=== PATIENT | female | born 1950 | race Caucasian/White ===

== ENCOUNTER 2023-02-17 23:24 | Inpatient (IN) | payer OTHER ==
[~2023-02-17] VITALS: Ht 165.1 cm; Wt 72.6 kg
[2023-02-17 23:26] VITALS: BP 161/91
[2023-02-17 23:58] LABS: BASO # 0.1 10*3/uL (0.0-0.1); BASO % 0.7 % (0.0-1.0); EOS # 0.2 10*3/uL (0.0-0.4); EOS % 2.3 % (1.0-4.0); HEMATOCRIT 42.1 % (37.0-47.0); LYMPH # 2.4 10*3/uL (1.3-4.4); LYMPH % 28.9 % (27.0-41.0); MEAN CELL VOLUME 83.4 fl (81.0-99.0); MEAN CORPUSCULAR HGB 26.7 pg (27.0-31.0); MEAN CORPUSCULAR HGB CONC 32.1 g/dl (33.0-37.0); MEAN PLATELET VOLUME 9.1 fl (9.6-12.3); MONO # 0.6 10*3/uL (0.1-1.0); MONO % 7.5 % (3.0-9.0); NEUT % 60.4 % (47.0-73.0); PLATELET COUNT AUTOMATED 267 10*3/uL (130-400); RED BLOOD COUNT 5.05 10*6/uL (4.10-5.10); RED CELL DISTRI WIDTH 13.6 % (0-14.5); WHITE BLOOD COUNT 8.4 10*3/uL (4.8-10.8)
[2023-02-18 00:21] LABS: ALKALINE PHOSPHATASE 84 U/L (46-116); BUN 18 mg/dl (9-23); CHLORIDE 109 mmol/L (98-107); POTASSIUM 3.9 mmol/L (3.4-5.1); SGPT/ALT 15 U/L (10-49); TOTAL PROTEIN 6.9 gm/dL (6.0-8.0)
[2023-02-18 00:26] LABS: ETHYL ALCOHOL < 3.0 mg/dl (<3)
[2023-02-18 00:38] LABS: BILIRUBIN Negative (Negative); BLOOD Negative (Negative); CLARITY Clear (Clear); COLOR Yellow (Yellow); GLUCOSE Negative (Negative); KETONE Negative (Negative); LEUKO ESTERASE Negative (Negative); NITRITE Negative (Negative); UROBILINOGEN 0.2 E.U./dl (0.0-1.0)
[2023-02-18 01:14] LABS: CALCIUM OXALATE CRYSTALS Trace
[2023-02-18 01:15] LABS: RBC 0-2 rbc/hpf (0-2); WBC 0-2 wbc/hpf (0-5)
[2023-02-18 01:48] LABS: URINE AMPHETAMINES Negative (1000ng/ml); URINE BARBITURATES Negative (200ng/ml); URINE BENZODIAZEPINES Negative (200ng/ml); URINE CANNABINOIDS (THC) Negative (50ng/ml); URINE COCAINE Negative (300ng/ml); URINE METHADONE Negative (300ng/ml); URINE OPIATES Negative (300ng/ml); URINE PHENCYCLIDINE Negative (25ng/ml)
[2023-02-18 02:56] VITALS: BP 165/88
[2023-02-18] MEDS ORDERED: Synthroid,Levo50 MCG PO (06:43)
[2023-02-18] MEDS ORDERED: METFORMIN HYDR500 MG PO (06:46)
[2023-02-18] MEDS ORDERED: VALSARTAN160 MG PO (06:48)
[2023-02-18] MEDS ORDERED: AMLODIPINE BESYL5 MG PO (06:49)
[2023-02-18] MEDS ORDERED: ROSUVASTATIN CA10 MG PO (06:50)
[2023-02-18] MEDS ORDERED: CENTRUM SILVER1 EAC2 PO (06:52)
[2023-02-18] MEDS ORDERED: FISH OIL 1,2001 EAC6 PO (06:54)
[2023-02-18] MEDS ORDERED: ZINC50 M4 PO (06:55)
[2023-02-18] MEDS ORDERED: CO Q10100 MG PO (07:01)
[2023-02-18] MEDS ORDERED: TRULICITY0.75 MG/0. SC (07:02)
[2023-02-18] MEDS ORDERED: INFANT'S M50 MG/1.25 PO (07:07)
[2023-02-18] MEDS ORDERED: DONEPEZIL HCL10 MG PO (07:08)
[2023-02-18] MEDS ORDERED: NAMENDA-14 PO (07:09)
[2023-02-18] MEDS ORDERED: LEXAPRO20 MG PO (07:11)
[2023-02-18] MEDS ORDERED: MELATONIN10 M4 PO (07:13)
[2023-02-18 07:45] VITALS: BP 146/75
[2023-02-18 19:34] VITALS: BP 156/83
[2023-02-19 08:05] VITALS: BP 206/88
[2023-02-19 08:25] VITALS: BP 162/92
[2023-02-19 09:09] VITALS: BP 162/88
[2023-02-19 20:00] VITALS: BP 178/80
[2023-02-20 07:28] VITALS: BP 164/70
[2023-02-20 20:00] VITALS: BP 149/66
[2023-02-21 08:00] VITALS: BP 159/85
[2023-02-21 20:00] VITALS: BP 160/78
[2023-02-22 08:00] VITALS: BP 122/61
[2023-02-22 20:00] VITALS: BP 148/72
[2023-02-23 07:58] VITALS: BP 148/70
[2023-02-23] MEDS ORDERED: NAMENDA10 MG PO (10:08)
[2023-02-23] MEDS ORDERED: REMERON15 M2 PO (10:08)
[2023-02-23] MEDS ORDERED: EXELON1 EAC1 T (10:09)
[2023-02-23] MEDS ORDERED: RISPERDAL0.5 MG PO (10:09)
[2023-02-23] MEDS ORDERED: ATORVASTATIN CA40 M1 PO (12:31)
== END 2023-02-23 13:22 | DRG 885 ==
LOC: ED 23:24 → 3N 02-18 04:27
PROVIDERS: Emergency Medicine; ADMIT Psychiatry & Neurology Psychiatry; ATTEND Psychiatry & Neurology Psychiatry
DX: F33.2 Major depressive disorder, recurrent severe without psychotic features (principal); E11.65 Type 2 diabetes mellitus with hyperglycemia; G30.9 Alzheimer's disease, unspecified; E87.8 Other disorders of electrolyte and fluid balance, not elsewhere classified; D75.89 Other specified diseases of blood and blood-forming organs; Z96.653 Presence of artificial knee joint, bilateral; F02.80 Dementia in other diseases classified elsewhere, unspecified severity, without behavioral disturbance, psychotic disturbance, mood disturbance, and anxiety; I11.9 Hypertensive heart disease without heart failure; E03.9 Hypothyroidism, unspecified; E78.5 Hyperlipidemia, unspecified; Z88.0 Allergy status to penicillin; Z88.5 Allergy status to narcotic agent; Z79.899 Other long term (current) drug therapy